=== PATIENT | male | born 1980 | race Caucasian/White ===

== ENCOUNTER 2017-04-30 13:04 | Day surgery (SDC) | payer BC, OTHER ==
[~2017-04-30] VITALS: Ht 177.8 cm; Wt 75.2 kg
[~2017-04-30 13:04] MED LIST: PARO10TA26 PO; SIMV20TA2 PO
[2017-04-30 15:42] VITALS: Ht 177.8 cm; Wt 75.2 kg
[2017-04-30 16:23] VITALS: BP 126/82; PULSE 62; RESP 24
[2017-04-30] MEDS ORDERED: PROPOFOL 20 ML ONE (16:30)
[2017-04-30] MEDS ORDERED: LIDOCAINE 2% (SDV) 5 ML INJ ONE (16:30)
[2017-04-30] MEDS ORDERED: MIDAZOLAM 1 MG/ML 2 ML INJ ONE (16:31)
[2017-04-30] MEDS ORDERED: FENTAnyl 50 MCG/ML VIAL ONE (16:31)
[2017-04-30 17:17] VITALS: BP 148/77; PULSE 70; RESP 24
--- NOTE | 2017-04-30 18:22 | OPPN ---
Date/Time of Note Date/Time of Note DATE: 04/30/17 TIME: 18:19 Proc Note GI Procedure Date 04/30/17 Indication: other (Hematochezia) Pre-procedure Diagnosis Hematochezia Post-procedure Diagnosis Impression: Ulcerative proctitis, moderate Moderate-sized internal hemorrhoids. Otherwise normal colonoscopy to cecum Plan: Canasa suppositories Review biopsies Follow-up as previously scheduled . 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 Following this, premedication was administered slowly IV push under careful cardiovascular and respiratory monitoring with pulse [employer], automatic blood pressure, and lunchroom monitor. Once the sedative effect was achieved, the patient was placed in the left lateral decubitus position, digital rectal examination was performed. The colonoscope was then introduced and advanced under visual control throughout all segments of the colon including: the rectum, sigmoid, descending colon, splenic flexure, transverse colon, hepatic flexure, ascending colon and finally reaching the cecum which was clearly identified by transillumination, finger indentation and the ileocecal valve. Careful examination of the mucosa of the lower gastrointestinal tract both on insertion as well as withdrawal of the instrument disclosed the following findings: PREPARATION QUALITY: [Adequate], RECTAL EXAM: The anorectal area was visualized examined and digital rectal examination performed with the following findings: No evidence of perirectal disease, no masses. COLONIC MUCOSA: The mucosa of all segments of the colon was carefully examined and showed the following findings: There is a short segment approximately 7 cm of erythema edema and friability of the mucosa of the distal rectum consistent with proctitis. Biopsies were obtained. Otherwise the examined mucosa appears within normal limits. There is no evidence of additional inflammatory changes, diverticular formation, polyps or other neoplasms, vascular malformation, or any other abnormality. The instrument was then withdrawn, the patient tolerated the procedure well and was transferred out of the Endoscopy Suite awake and in good condition to continue recovery under observation. Copies To: CC: ROSALVA MCMAHAN MD, MORDO MD Apr 30, 2017 18:22
== END 2017-04-30 17:44 | disposition home or self-care (01) ==
LOC: GIL 13:04
PROVIDERS: ATTEND Internal Medicine Gastroenterology
DX: K92.1 Melena (principal); K62.89 Other specified diseases of anus and rectum; K64.4 Residual hemorrhoidal skin tags
CPT/HCPCS: 45380; J2250; J3010